=== PATIENT | male | born 1945 | race Two or more races ===

== ENCOUNTER 2018-05-22 14:34 | Outpatient (CLI) | payer MEDICAID ==
[~2018-05-22] VITALS: Ht 170.2 cm; Wt 63.5 kg
[2018-05-22 13:56] VITALS: BP 135/58
--- NOTE | 2018-05-22 22:45 | Consultation ---
DATE OF CONSULTATION: 05/22/2018 CONSULTING PHYSICIAN: Sumeet Kennedy M.D. CHIEF COMPLAINT: Screening colonoscopy evaluation. PAST MEDICAL HISTORY: 1. Coronary artery disease. 2. Kidney stone. 3. Hypertension. 4. Diabetes. PAST SURGICAL HISTORY: 1. Cardiac stent placement. 2. Left knee surgery. 3. Appendectomy. MEDICATIONS: Please see medication reconciliation list. FAMILY HISTORY: No family history of GI malignancies. SOCIAL HISTORY: The patient only drinks socially. Quit tobacco 15 years ago. Denies any IV drug abuse. ALLERGIES: No known drug allergy. PHYSICAL EXAMINATION: VITAL SIGNS: Temperature 97.6, blood pressure 135/78, pulse 55, respirations 20. HEENT: Normocephalic and atraumatic. Sclerae anicteric. NECK: Supple. No obvious evidence of lymphadenopathy. CARDIOVASCULAR: Regular rhythm. Plus S1 and S2. No obvious murmur. LUNGS: Clear to auscultation bilaterally. ABDOMEN: Positive bowel sounds. Soft and nontender. No rebound. No guarding. No peritoneal sign. EXTREMITIES: No cyanosis. No clubbing. No edema. ASSESSMENT AND PLAN: This is a 73-year-old male with need for screening colonoscopy. He was told to stop the Plavix 72 hours before the procedure. Plan to do colonoscopy when authorization from the insurance has been approved. Sumeet Kennedy M.D. DR: Kuldeep JOB#: [id number] CC:
[2018-05-23] MEDS ORDERED: GLIMEPIRIDE1 MG ORAL (07:47)
[2018-05-23] MEDS ORDERED: MULTIVITAMINS1 EA11 ORAL (07:47)
[2018-05-23] MEDS ORDERED: METOPROLOL TART25 MG ORAL (07:47)
[2018-05-23] MEDS ORDERED: OMEPRAZOLE20 M2 ORAL (07:47)
[2018-05-23] MEDS ORDERED: CLOPIDOGREL75 MG ORAL (07:47)
[2018-05-23] MEDS ORDERED: ATORVASTATIN CA40 MG ORAL (07:47)
[2018-05-23] MEDS ORDERED: METFORMIN HCL1000 M1 ORAL (07:47)
[2018-05-23] MEDS ORDERED: JANUVIA25 MG ORAL (07:47)
[2018-05-23] MEDS ORDERED: ASPIRIN-LOW81 MG ORAL (07:47)
[2018-05-23] MEDS ORDERED: ACARBOSE50 MG ORAL (07:47)
[2018-05-23] MEDS ORDERED: RAMIPRIL5 MG ORAL (07:47)
== END 2018-05-22 16:34 | disposition home or self-care (01) ==
LOC: PAN 14:34
DX: Z01.818 Encounter for other preprocedural examination (principal); I11.9 Hypertensive heart disease without heart failure; I10 Essential (primary) hypertension; E11.9 Type 2 diabetes mellitus without complications; Z90.89 Acquired absence of other organs; Z95.5 Presence of coronary angioplasty implant and graft; Z87.891 Personal history of nicotine dependence
CPT/HCPCS: 99202

== ENCOUNTER 2018-08-29 09:51 | Outpatient (CLI) | payer MEDICAID ==
[~2018-08-29 09:51] MED LIST: ACARBOSE50 MG ORAL; ASPIRIN-LOW81 MG ORAL; ATORVASTATIN CA40 MG ORAL; CLOPIDOGREL75 MG ORAL; GLIMEPIRIDE1 MG ORAL; JANUVIA25 MG ORAL; METFORMIN HCL1000 M1 ORAL; METOPROLOL TART25 MG ORAL; MULTIVITAMINS1 EA11 ORAL; OMEPRAZOLE20 M2 ORAL; RAMIPRIL5 MG ORAL
--- NOTE | 2018-08-29 10:11 | General Progress Note ---
Assessment/Plan Assessment/Plan: colonoscopy reviewed>>2 polyps>>> repeat colon in 5 years add miralax and Align Subjective ROS Limited/Unobtainable: Yes Allergies: Coded Allergies: No Known Allergies (Unverified , 05/23/18) Objective General Appearance: alert EENT: normal ENT inspection Neck: supple Cardiovascular: normal rate Respiratory/Chest: lungs clear Abdomen: normal bowel sounds, non tender, soft Extremities: non-tender Sumeet Kennedy MD Aug 29, 2018 10:11
== END 2018-08-29 11:51 | disposition home or self-care (01) ==
LOC: PAN 09:51
DX: K63.5 Polyp of colon (principal)